=== PATIENT | female | born 1960 | race Caucasian/White ===

== ENCOUNTER → 2016-09-27 | Outpatient (CLI) | payer OTHER | END | disposition home or self-care (01) | LOC: YCFC.O 13:33 | PROVIDERS: ATTEND Nurse Practitioner Family | DX: E78.2 Mixed hyperlipidemia (principal) ==

== ENCOUNTER → 2016-10-22 | Outpatient (CLI) | payer OTHER ==
--- NOTE | 2016-10-22 14:52 | RAD ---
EXAM DESCRIPTION: Shoulder,Left 2 or More Views CLINICAL HISTORY: PAIN IN LEFT SHOULDER COMPARISON: None. IMPRESSION: 3 views of the left shoulder shows diffuse osteopenia of the osseous structures. No evidence of acute fracture, focal bone destruction, or joint dislocation is seen. Mild osteoarthritic changes of the left acromioclavicular joint are identified. Electronically signed by: Jona Llanes MD 10/22/2016 2:52 PM CDT
--- NOTE | 2016-10-22 14:54 | RAD ---
EXAM DESCRIPTION: Cervical Spine,5 Views CLINICAL HISTORY: 56 years Female, CERVICALGIA COMPARISON: None. FINDINGS: 5 views of the cervical spine show vertebral body heights to be maintained. The C6-T1 levels not well seen on lateral projection because of overlapping structures. There is mild disc space narrowing at C6-7. Normal alignment of the cervical spine is seen. Moderate facet hypertrophic and degenerative changes are seen right greater than left from C3 through C6. C1-2 relationship is maintained. Oblique view show at least mild bony foraminal encroachment) the left from C3 through C6. This is most significant on the left at C3-4. Carotid artery calcifications are identified. IMPRESSION: Mild disc degenerative changes at C6-7 are seen with facet arthropathy from C3 through C6. Electronically signed by: Jona Llanes MD 10/22/2016 2:54 PM CDT
--- NOTE | 2016-10-22 15:08 | RAD ---
EXAM DESCRIPTION: Lumbar Spine 5 Views CLINICAL HISTORY: 56 years Female, LOW BACK PAIN COMPARISON: None. FINDINGS: 5 views of the lumbar spine show vertebral body heights to be maintained. There is mild diffuse disc space narrowing at L2-3 and L3-4 with moderate disc space narrowing at L4-5 and L5-S1. Vacuum disc phenomenon is suggested at L4-5 and L5-S1. Moderate facet hypertrophic and degenerative changes are seen bilaterally at L4-5 and L5-S1. There is mild scoliosis of the lumbar spine with convexity towards the right centered at the L1-2 level and convexity towards the left at the L4 level. Cholecystectomy changes are seen. Moderate vascular calcifications are noted without aneurysmal dilatation of the aorta. IMPRESSION: Moderate to severe disc degenerative changes of the lumbar spine from L2 through S1 are seen with facet arthropathy from L4 through S1. Electronically signed by: Jona Llanes MD 10/22/2016 3:07 PM CDT
== END | disposition home or self-care (01) ==
LOC: RAD 12:26
PROVIDERS: ATTEND Nurse Practitioner Family
DX: M54.5 Low back pain (principal); M54.2 Cervicalgia; M25.512 Pain in left shoulder

== ENCOUNTER → 2017-01-07 | Outpatient (CLI) | payer OTHER | END | disposition home or self-care (01) | LOC: YCFC.O 11:10 | PROVIDERS: ATTEND Anesthesiology Pain Medicine | DX: Z79.891 Long term (current) use of opiate analgesic (principal) ==

== ENCOUNTER 2017-05-22 13:58 | Emergency (ER) | payer OTHER ==
[2017-05-22] MEDS ORDERED: ALBUTEROL SULFATE 2.5 MG/3 ML VIAL NEB ONE (14:37)
--- NOTE | 2017-05-22 14:40 | ED.PDOC ---
History of Present Illness - General Chief Complaint: Respiratory Problem Stated Complaint: SOB w/ 7# weight gain Time Seen by Provider: 05/22/17 14:36 Source: patient, RN notes reviewed, Vital Signs reviewed Exam Limitations: no limitations - History of Present Illness Initial Comments: Patient comes in with c/o SOB, swelling and a 7# weight gain. Reports her home health nurse wanted her to come in to be sure she was not getting pneumonia. + productive cough. + wheezing - doing Duonebs at home. + swelling of feet, hands and face. Timing/Duration: 24 hours Severity: moderate Activities at Onset: none Possible Cause: frequent episodes Improving Factors: nothing Worsening Factors: nothing Associated Symptoms: cough, wheezing Respiratory Risk Factors: other - COPD and CHF Allergies/Adverse Reactions: Allergies Latex Allergy (Severe, Verified 04/06/16 14:12) Rash Codeine Allergy (Verified 04/06/16 14:12) Nausea Levofloxacin [From Levaquin] Allergy (Verified 04/06/16 14:12) Rash Home Medications: Ambulatory Orders Trazodone HCl 150 mg PO HS 08/03/12 Albuterol Sulfate 0.083 % IN Q4H PRN #0 04/27/13 Budesonide-Formoterol Fumarate [Symbicort 160-4.5 Mcg/Act] 160 mcg INH BID #0 Clonazepam 1 mg PO HS #0 04/27/13 Furosemide [Lasix] 40 mg PO DAILY #0 04/27/13 Ipratropium/Albuterol [Duoneb] 3 ml INH QID #0 04/27/13 Levalbuterol Tartrate [Xopenex Hfa] 45 mcg IN QID PRN #0 04/27/13 POTASSIUM CHLORIDE 10mEq 1 tab PO DAILY #0 04/27/13 predniSONE 20 mg PO DAILY #4 tab 04/19/14 amLODIPine BESYLATE [Norvasc] 10 mg PO DAILY 08/30/15 Sulfamethoxazole-Trimethoprim [Bactrim Ds 800-160 mg] 1 tab PO BID #10 tab 04/06 Potassium Chloride [Potassium Chloride ER] 10 meq PO DAILY #30 cap 05/22/17 predniSONE 20 mg PO DAILY #5 tab 05/22/17 Review of Systems - Review of Systems Constitutional: States: no symptoms reported EENTM: States: no symptoms reported Respiratory: States: see HPI, cough, short of breath, wheezing Cardiology: States: edema. Denies: chest pain Gastrointestinal/Abdominal: States: no symptoms reported Musculoskeletal: States: no symptoms reported Skin: States: no symptoms reported Neurological: States: no symptoms reported All other Systems: No Change from Baseline Past Medical History (General) - Patient Medical History Hx Seizures: No Hx Stroke: Yes - tia Hx Dementia: No Hx Asthma: Yes Hx of COPD: Yes - wears home O2 Hx Cardiac Disorders: No Hx Congestive Heart Failure: No Hx Pacemaker: No Hx Hypertension: No Hx Thyroid Disease: No Hx Diabetes: Yes Hx Gastroesophageal Reflux: No Hx Renal Disease: No Hx Cancer: No Hx of HIV: No Hx Hepatitis C: No Hx MRSA: No - Vaccination History Hx Tetanus, Diphtheria Vaccination: Yes Hx Influenza Vaccination: No Hx Pneumococcal Vaccination: Yes - Social History Hx Tobacco Use: Yes Hx Chewing Tobacco Use: No Hx Alcohol Use: No Hx Substance Use: No Hx Substance Use Treatment: No Hx Depression: No Hx Physical Abuse: No Hx Emotional Abuse: No Hx Suspected Abuse: No - Female History Patient : No Family Medical History - Family History Father Living Status: Age at (years of age): 48 Hx Cardiac Disease: Yes Mother Living Status: Hx Family Asthma: Yes Hx Cardiac Disease: Yes Physical Exam - Physical Exam General Appearance: Alert, Comfortable, No apparent distress, Well Developed, Well Groomed, Well Hydrated, Well Nourished Neck: supple, normal inspection Respiratory: no respiratory distress, decreased breath sounds, crackles - @ bilateral bases, wheezing, expiration Cardiovascular/Chest: regular rate, rhythm, no gallop, no murmur, other - 1-2+ pitting edema of feet, hands and face Gastrointestinal/Abdominal: normal bowel sounds, non tender, soft, no organomegaly Extremity: pedal edema Neurologic: alert, normal mood/affect, oriented x 3 Skin Exam: normal color, warm/dry Progress - Progress Progress: 05/22/17 15:20 Patients breathing is better but she is requesting a pain shot. She is having body aches, chronic low back pain and a pinched nerve in her upper back. 05/22/17 16:39 Labs and CXR show no signs of CHF exacerbation. She is having a COPD exacerbation. Will give Solu-Medrol 125mg IV and another Duoneb. 05/22/17 18:17 Patient reports breathing is better but overall she just feels bad. Thinks she has overdone it and worn herself out. 05/22/17 18:25 Patient is sleeping comfortably - Results/Orders Results/Orders: ABG: pH 7.44, pCO2 66, pO2 57 - EKG/XRAY/CT XRAY: chest - Chronic emphysema per Radiologist, no acute findings Departure - Departure Clinical Impression: COPD exacerbation Time of Disposition: 18:57 Disposition: Discharge to Home or Self Care Condition: Good Departure Forms: ED Discharge - Pt. Copy, Patient Portal Self Enrollment Instructions: DI for Chronic Obstructive Pulmonary Disease Diet: resume usual diet Activity: increase activity as tolerated Referrals: Brien Granados MD [Primary Care Provider] - 1-5 Days Prescriptions: Potassium Chloride [Potassium Chloride ER] 10 meq PO DAILY #30 cap predniSONE 20 mg PO DAILY #5 tab Home Medications: Ambulatory Orders Trazodone HCl 150 mg PO HS 08/03/12 Albuterol Sulfate 0.083 % IN Q4H PRN #0 04/27/13 Budesonide-Formoterol Fumarate [Symbicort 160-4.5 Mcg/Act] 160 mcg INH BID #0 Clonazepam 1 mg PO HS #0 04/27/13 Furosemide [Lasix] 40 mg PO DAILY #0 04/27/13 Ipratropium/Albuterol [Duoneb] 3 ml INH QID #0 04/27/13 Levalbuterol Tartrate [Xopenex Hfa] 45 mcg IN QID PRN #0 04/27/13 POTASSIUM CHLORIDE 10mEq 1 tab PO DAILY #0 04/27/13 predniSONE 20 mg PO DAILY #4 tab 04/19/14 amLODIPine BESYLATE [Norvasc] 10 mg PO DAILY 08/30/15 Sulfamethoxazole-Trimethoprim [Bactrim Ds 800-160 mg] 1 tab PO BID #10 tab 04/06 Potassium Chloride [Potassium Chloride ER] 10 meq PO DAILY #30 cap 05/22/17 predniSONE 20 mg PO DAILY #5 tab 05/22/17
[2017-05-22 15:05] VITALS: TEMP 98.2
[2017-05-22] MEDS ORDERED: MORPHINE SULFATE INJ 10 MG/ML VIAL IV ONE (15:21)
--- NOTE | 2017-05-22 15:43 | RAD ---
EXAM DESCRIPTION: Chest,2 Views CLINICAL HISTORY: SOB COMPARISON: September 02, 2015 TECHNIQUE: PA/lateral FINDINGS: The lungs are clear of infiltrate. There is no effusion or nodule. The lungs appear hyperinflated with flattening of the diaphragms. There is hyperlucency of the lungs as well. These findings are most consistent with chronic emphysema. IMPRESSION: 1. Chronic changes, no acute process. Electronically signed by: Main Avila MD 05/22/2017 3:42 PM CDT
[2017-05-22] MEDS ORDERED: IPRATROPIUM/ALBUTEROL 3 ML VIAL NEB ONE (16:38)
[2017-05-22] MEDS ORDERED: methylPREDNISolone SODIUM SUC 125 MG/2 ML VIAL IV ONE (16:38)
[2017-05-22 19:13] VITALS: BP 117/57; O2SAT 94
== END 2017-05-22 19:31 | disposition home or self-care (01) ==
LOC: ER 13:58
DX: J44.1 Chronic obstructive pulmonary disease with (acute) exacerbation (principal); E11.9 Type 2 diabetes mellitus without complications; Z86.73 Personal history of transient ischemic attack (TIA), and cerebral infarction without residual deficits; Z99.81 Dependence on supplemental oxygen; Z79.899 Other long term (current) drug therapy; Z91.040 Latex allergy status; Z88.6 Allergy status to analgesic agent; Z88.3 Allergy status to other anti-infective agents
CPT/HCPCS: 71020; 80048; 83880; 85025; J2270; J2930; J7611; J7620

== ENCOUNTER 2018-02-26 14:25 | Emergency (ER) | payer OTHER ==
--- NOTE | 2018-02-26 14:35 | ED.PDOC ---
History of Present Illness - General Chief Complaint: Respiratory Problem Time Seen by Provider: 02/26/18 14:31 Source: patient, RN notes reviewed, Vital Signs reviewed, EMS notes reviewed Exam Limitations: no limitations Additional Information: 58 YEAR OLD HERE BROUGHT BY EMS FOR EVALUATION OF " MY BLOOD PRESSURE IS HIGH " SHE ALSO REPORTS A FALL LAST NIGHT ROLLED OFF HER BED GOT BACK UP WITH NO ASSISTANCE NO LOC NO HEADACHE SHE HAS PAIN IN HER UPPER BACK SHE IS A OXYGEN DEPENDENT COPD SHE IS AT THE TIME OF PRESENTATION IN MODERATE RESPIRATORY DISTRESS HOWEVER SHE STATES THAT IS NORMAL FOR HER EMS REPORTS O2 SAT OF 91 AND AFTER SHE WALKED TO THE COT IT DROPPED TO MID 70S WITH OUT HER OXYGEN - History of Present Illness Timing/Duration: 24 hours Severity: moderate Worsening Factors: nothing Associated Symptoms: denies symptoms Allergies/Adverse Reactions: Allergies Latex Allergy (Severe, Verified 04/06/16 14:12) Rash Codeine Allergy (Verified 04/06/16 14:12) Nausea Levofloxacin [From Levaquin] Allergy (Verified 04/06/16 14:12) Rash Home Medications: Ambulatory Orders Trazodone HCl 150 mg PO HS 08/03/12 Albuterol Sulfate 0.083 % IN Q4H PRN #0 04/27/13 Budesonide-Formoterol Fumarate [Symbicort 160-4.5 Mcg/Act] 160 mcg INH BID #0 Clonazepam 1 mg PO HS #0 04/27/13 Furosemide [Lasix] 40 mg PO DAILY #0 04/27/13 Ipratropium/Albuterol [Duoneb] 3 ml INH QID #0 04/27/13 Levalbuterol Tartrate [Xopenex Hfa] 45 mcg IN QID PRN #0 04/27/13 POTASSIUM CHLORIDE 10mEq 1 tab PO DAILY #0 04/27/13 predniSONE 20 mg PO DAILY #4 tab 04/19/14 amLODIPine BESYLATE [Norvasc] 10 mg PO DAILY 08/30/15 Sulfamethoxazole-Trimethoprim [Bactrim Ds 800-160 mg] 1 tab PO BID #10 tab 04/06 Potassium Chloride [Potassium Chloride ER] 10 meq PO DAILY #30 cap 05/22/17 predniSONE 20 mg PO DAILY #5 tab 05/22/17 Review of Systems - Review of Systems Constitutional: States: weakness EENTM: States: no symptoms reported Respiratory: States: short of breath, wheezing Cardiology: States: no symptoms reported Gastrointestinal/Abdominal: States: no symptoms reported Genitourinary: States: no symptoms reported Musculoskeletal: States: no symptoms reported Skin: States: no symptoms reported Neurological: States: no symptoms reported Endocrine: States: no symptoms reported Hematologic/Lymphatic: States: no symptoms reported Past Medical History (General) - Patient Medical History Hx Seizures: No Hx Stroke: Yes - tia Hx Dementia: No Hx Asthma: Yes Hx of COPD: Yes - wears home O2 Hx Cardiac Disorders: No Hx Congestive Heart Failure: No Hx Pacemaker: No Hx Hypertension: No Hx Thyroid Disease: No Hx Diabetes: Yes Hx Gastroesophageal Reflux: No Hx Renal Disease: No Hx Cancer: No Hx of HIV: No Hx Hepatitis C: No Hx MRSA: No - Vaccination History Hx Tetanus, Diphtheria Vaccination: Yes Hx Influenza Vaccination: No Hx Pneumococcal Vaccination: Yes - Social History Hx Tobacco Use: Yes Hx Chewing Tobacco Use: No Hx Alcohol Use: No Hx Substance Use: No Hx Substance Use Treatment: No Hx Depression: No Hx Physical Abuse: No Hx Emotional Abuse: No Hx Suspected Abuse: No - Female History Patient : No Family Medical History - Family History Father Living Status: Age at (years of age): 48 Hx Cardiac Disease: Yes Mother Living Status: Hx Family Asthma: Yes Hx Cardiac Disease: Yes Physical Exam - Physical Exam General Appearance: Alert, Obvious distress Eye Exam: bilateral normal Ears, Nose, Throat: hearing grossly normal, normal ENT inspection, normal pharynx, abnormal TM (R) Neck: non-tender, full range of motion, supple Respiratory: chest non-tender, decreased breath sounds, rhonchi, wheezing Cardiovascular/Chest: normal peripheral pulses, regular rate, rhythm, no edema, no gallop, no JVD, no murmur Peripheral Pulses: radial,right: 2+, radial,left: 2+ Back Exam: normal inspection, no CVA tenderness, no vertebral tenderness Extremity: normal range of motion, non-tender, normal inspection, no pedal edema Neurologic: bingo attendant II-XII nml as tested, no motor/sensory deficits, alert, normal mood/affect, oriented x 3 Departure - Departure Clinical Impression: COPD exacerbation Time of Disposition: 16:55 Disposition: Discharge to Home or Self Care Condition: Fair Departure Forms: ED Discharge - Pt. Copy, Patient Portal Self Enrollment Diet: resume usual diet Referrals: Brien Granados MD [Primary Care Provider] - 1-2 Weeks Home Medications: Ambulatory Orders Trazodone HCl 150 mg PO HS 08/03/12 Albuterol Sulfate 0.083 % IN Q4H PRN #0 04/27/13 Budesonide-Formoterol Fumarate [Symbicort 160-4.5 Mcg/Act] 160 mcg INH BID #0 Clonazepam 1 mg PO HS #0 04/27/13 Furosemide [Lasix] 40 mg PO DAILY #0 04/27/13 Ipratropium/Albuterol [Duoneb] 3 ml INH QID #0 04/27/13 Levalbuterol Tartrate [Xopenex Hfa] 45 mcg IN QID PRN #0 04/27/13 POTASSIUM CHLORIDE 10mEq 1 tab PO DAILY #0 04/27/13 predniSONE 20 mg PO DAILY #4 tab 04/19/14 amLODIPine BESYLATE [Norvasc] 10 mg PO DAILY 08/30/15 Sulfamethoxazole-Trimethoprim [Bactrim Ds 800-160 mg] 1 tab PO BID #10 tab 04/06 Potassium Chloride [Potassium Chloride ER] 10 meq PO DAILY #30 cap 05/22/17 predniSONE 20 mg PO DAILY #5 tab 05/22/17
[2018-02-26 14:46] VITALS: TEMP 97
--- NOTE | 2018-02-26 15:06 | RAD ---
EXAM DESCRIPTION: Chest,1 View CLINICAL HISTORY: SOB, wheezing COMPARISON: May 22, 2017 IMPRESSION: Single AP portable upright view of the chest shows cardiac silhouette and pulmonary vasculature to be within normal limits. Apical lordotic projection is noted. Lungs are normally aerated. Increased interstitial markings in the lower lung miller have a similar appearance to previous exam and are likely chronic. Bullous emphysematous changes to lung apices are seen. No obvious pleural effusion or pneumothorax is seen. Electronically signed by: Jona Llanes MD 02/26/2018 3:04 PM CDT
[2018-02-26] MEDS ORDERED: DEXAMETHASONE INJ 10 MG/ML VIAL IM ONE (16:53)
[2018-02-26] MEDS ORDERED: CLINDAMYCIN HCL CAP (ER DISP) 150 MG CAP PO ONE (19:05)
[2018-02-26] MEDS ORDERED: IPRATROPIUM/ALBUTEROL 3 ML VIAL NEB ONE ×2 (19:15→19:26)
[2018-02-26 19:37] VITALS: O2SAT 99
[2018-02-26 20:12] VITALS: BP 134/86
== END 2018-02-26 20:12 | disposition home or self-care (01) ==
LOC: ER 14:25
DX: J44.1 Chronic obstructive pulmonary disease with (acute) exacerbation (principal); J45.909 Unspecified asthma, uncomplicated; E11.9 Type 2 diabetes mellitus without complications; Z99.81 Dependence on supplemental oxygen; Z86.73 Personal history of transient ischemic attack (TIA), and cerebral infarction without residual deficits; Z91.040 Latex allergy status; Z87.891 Personal history of nicotine dependence
CPT/HCPCS: 36415; 71045; 80048; 85025; 94640; J1100; J7620